=== PATIENT | female | born 1960 | race Hispanic/Latino ===

== ENCOUNTER 2017-07-24 09:04 | Outpatient (CLI) | payer OTHER ==
--- NOTE | 2017-07-24 16:57 | XRay Report ---
FINAL REPORT EXAM: XR SPINE LUMBOSACRAL 6+V HISTORY: LUMBAR PAIN TECHNIQUE: Chest lumbar spine four views PRIORS: None. FINDINGS: Posterior fusion hardware present L4-5. Hardware appears intact and demonstrates expected positioning. The vertebral bodies are normal in height and alignment. Facet joints demonstrate normal alignment. Transverse processes are intact. IMPRESSION: Status post lumbar fusion at L4-5
== END 2017-07-24 09:05 | disposition home or self-care (01) ==
LOC: SPVIMAG 09:04
PROVIDERS: ATTEND Physical Medicine & Rehabilitation
DX: M43.26 Fusion of spine, lumbar region (principal)
CPT/HCPCS: 72114